=== PATIENT | male | born 1955 | race Caucasian/White ===

== ENCOUNTER → 2018-11-27 | Outpatient (CLI) | payer OTHER | LOC: FIMAGING 15:19 | PROVIDERS: ATTEND Physical Medicine & Rehabilitation | DX: M46.1 Sacroiliitis, not elsewhere classified (principal) ==

== ENCOUNTER 2018-12-20 14:08 | Observation (INO) | payer OTHER ==
[2018-12-20] MEDS ORDERED: ASPIRIN 81 MG CHEWABLE TAB PO ONE (14:19)
[2018-12-20] MEDS ORDERED: NS 500 ML IV ONE (14:19)
[2018-12-20 14:27] LABS: PLATELET COUNT 243 10^3/uL (150-400)
[2018-12-20 14:35] LABS: INR 0.95 (0.83-1.16); PROTIME(PATIENT) 12.3 SEC (12.0-15.0)
--- NOTE | 2018-12-20 16:07 | EDPHY ---
H & P Time Seen by Provider: 12/20/18 14:18 HPI/ROS: HPI Chest discomfort. 63-year-old male by private vehicle with his . This patient reports that at approximately 1:30 p.m. He was standing. He was with his . He had sudden onset what he describes as chest squeezing and pressure mid substernal. No radiation. He reports he has not had this pain or discomfort in the past. He does report having a sensation of his heart fluttering about a week ago. He describes this is brief and transient. He does not have any significant family history of coronary artery disease. Nonsmoker. No diabetes. No hypertension. His cholesterol is borderline. He denies any chest pain or shortness of breath at this time. ROS: Constitutional: No fever, no chills. No weakness. Eyes: No discharge. No changes in vision. ENT: No sore throat. No nasal congestion or rhinorrhea. Respiratory: No cough. No shortness of breath. Cardiac: As above, no palpitations. Gastrointestinal: No abdominal pain, no vomiting, no diarrhea. Genitourinary: No hematuria. No dysuria or increased frequency with urination. Musculoskeletal: No back pain. No neck pain. No myalgias or arthralgias. Skin: No rashes. Neurological: No headache. No focal weakness or altered sensation. Past medical history: He takes Lexapro for anxiety. Social history: Nonsmoker. Social alcohol. Here with his . Physical Exam: General Appearance: Alert, no distress. He is mildly anxious. This patient is responding to questions appropriately and in full sentences. This patient appears well-hydrated and well-nourished. Eyes: Pupils equal and round no pallor or injection. No lid edema, erythema or injection. Respiratory: There are no retractions, lungs are clear to auscultation with good air movement bilaterally. Cardiovascular: Regular rate and rhythm. No murmur. Gastrointestinal: Abdomen is soft and nontender, no masses, bowel sounds normal. No focal tenderness at McBurney's point. No Vasquez sign. Neurological: Motor sensory function is grossly intact. Cranial nerves are normal. Gait is normal. Skin: Warm and dry, no rashes. Musculoskeletal: Neck is supple and nontender. Extremities are symmetrical. All joints range without pain or impingement. Psychiatric: No agitation. No depression. Database: EKG: EKG time is 6:17 p.m.; EKG shows a narrow complex normal sinus rhythm with a ventricular rate of 70. The NE, QRS, QT intervals are within normal limits. There are no ST-T wave changes indicative of ischemic or injury pattern. No evidence of right heart strain. Interpreted by me. Imaging: Chest x-ray AP portable: The cardiac mediastinal silhouette is unremarkable. No evidence of pneumothorax or infiltrate. No acute cardiopulmonary disease process noted. Interpreted by me. Procedures: Emergency department course: Triage vital signs reviewed and are normal. The patient is afebrile. IV was placed. He was placed on a lunchroom monitor. EKG obtained and reviewed by myself. 4:00 p.m., the patient was re-evaluated, resting comfortably at this time. He remains asymptomatic. No shortness of breath. No chest pain or discomfort. Results of his emergency department workup were discussed with him and his . I discussed risk stratification. I discussed admission for observation and further testing overnight. At this time his and him do not want him to be admitted. He has a heart score of 3 which puts him in the upper and of the low risk category. He and his will discuss admission. I feel I have provided them with the proper information to make this decision appropriately. In my professional opinion they demonstrate capacitance to make decisions. 4:20 p.m., the patient was re-evaluated. He and his state that they would feel more comfortable with him being evaluated in the hospital overnight. I discussed the case with on-call hospitalist Dr. Tj Banuelos. She accepts this patient for admission to telemetry under her care. The patient's remaining emergency department course under my care has been uneventful. She was admitted in stable condition to the hospitalist service. Differential Diagnosis: The differential diagnosis on this patient includes but is not limited to anxiety reaction, pleurisy, esophageal spasm. Acute coronary syndrome, pulmonary embolism, aortic dissection, pneumonia, pneumothorax unlikely. This represents a partial list of diagnoses considered. These considerations are based on history, physical exam, past history, reassessment and diagnostic testing. Smoking Status: Never smoked Constitutional: Initial Vital Signs Temperature (C) 36.5 C 12/20/18 14:10 Heart Rate 86 12/20/18 14:10 Respiratory Rate 17 12/20/18 14:10 Blood Pressure 120/85 H 05/11/19 14:10 O2 Sat (%) 94 12/20/18 14:10 O2 Delivery Mode Room Air Allergies/Adverse Reactions: Penicillins Allergy (Mild, Verified 12/20/18 14:09) Home Medications: Medication Instructions Recorded Lexapro 12/20/18 Medical Decision Making - Diagnostics Imaging Results: Imaging Impressions Chest X-Ray 12/20/18 14:19 Impression: No acute localizing features. - Data Points Laboratory Results: Laboratory Results 12/20/18 14:20 12/20/18 14:20 12/20/18 12/20/18 12/20/18 14:22 14:20 14:20 WBC RBC Hgb Hct MCV MCH MCHC RDW Plt Count MPV Neut % (Auto) Lymph % (Auto) [place] % (Auto) Eos % (Auto) Baso % (Auto) Nucleat RBC Rel Count Absolute Neuts (auto) Absolute Lymphs (auto) Absolute Monos (auto) Absolute Eos (auto) Absolute Basos (auto) Absolute Nucleated RBC Immature Gran % Immature Gran # PT 12.3 SEC SEC (12.0-15.0) INR 0.95 (0.83-1.16) APTT 27.1 SEC SEC (23.0-38.0) Sodium 140 mEq/L mEq/L (135-145) Potassium 3.9 mEq/L mEq/L (3.5-5.2) Chloride 102 mEq/L mEq/L (97-110) Carbon Dioxide 25 mEq/l mEq/l (22-31) Anion Gap 13 mEq/L mEq/L (6-14) BUN 23 mg/dL mg/dL (7-23) Creatinine 1.0 mg/dL mg/dL (0.7-1.3) Estimated GFR > 60 Glucose 94 mg/dL mg/dL (70-100) Calcium 9.5 mg/dL mg/dL (8.5-10.4) POC Troponin I 0.00 ng/mL ng/mL (0.00-0.08) 12/20/18 14:20 WBC 5.74 10^3/uL 10^3/uL (3.80-9.50) RBC 5.21 10^6/uL 10^6/uL (4.40-6.38) Hgb 16.5 g/dL g/dL (13.7-17.5) Hct 48.3 % % (40.0-51.0) MCV 92.7 fL fL (81.5-99.8) MCH 31.7 pg pg (27.9-34.1) MCHC 34.2 g/dL g/dL (32.4-36.7) RDW 12.6 % % (11.5-15.2) Plt Count 243 10^3/uL 10^3/uL (150-400) MPV 8.9 fL fL (8.7-11.7) Neut % (Auto) 57.1 % % (39.3-74.2) Lymph % (Auto) 27.2 % % (15.0-45.0) [place] % (Auto) 10.1 % % (4.5-13.0) Eos % (Auto) 4.7 % % (0.6-7.6) Baso % (Auto) 0.7 % % (0.3-1.7) Nucleat RBC Rel Count 0.0 % % (0.0-0.2) Absolute Neuts (auto) 3.28 10^3/uL 10^3/uL (1.70-6.50) Absolute Lymphs (auto) 1.56 10^3/uL 10^3/uL (1.00-3.00) Absolute Monos (auto) 0.58 10^3/uL 10^3/uL (0.30-0.80) Absolute Eos (auto) 0.27 10^3/uL 10^3/uL (0.03-0.40) Absolute Basos (auto) 0.04 10^3/uL 10^3/uL (0.02-0.10) Absolute Nucleated RBC 0.00 10^3/uL 10^3/uL (0-0.01) Immature Gran % 0.2 % % (0.0-1.1) Immature Gran # 0.01 10^3/uL 10^3/uL (0.00-0.10) PT INR APTT Sodium Potassium Chloride Carbon Dioxide Anion Gap BUN Creatinine Estimated GFR Glucose Calcium POC Troponin I Medications Given: Discontinued Medications Aspirin (Aspirin) 324 mg PO EDNOW ONE Stop: 12/20/18 14:20 Last Admin: 12/20/18 14:25 Dose: 324 mg Sodium Chloride (Ns) 500 mls @ 1,000 mls/hr IV EDNOW ONE PRN Reason: Protocol Stop: 12/20/18 14:48 Last Admin: 12/20/18 14:26 Dose: 500 mls Point of Care Test Results: Chemistry 12/20/18 14:22 POC Troponin I 0.00 ng/mL ng/mL (0.00-0.08) Departure - Departure Disposition: [facility] Inpatient Acute Clinical Impression: Chest pain Referrals: Jamshid Maynard MD [Primary Care Provider] - As per Instructions
[2018-12-20] MEDS ORDERED: ONDANSETRON DISINTEGRATING 4 MG TAB PO PRN (16:55)
[2018-12-20] MEDS ORDERED: NITROGLYCERIN 0.4 MG BTL SL PRN (16:55)
[2018-12-20] MEDS ORDERED: ACETAMINOPHEN 325 MG TAB PO PRN (16:55)
[2018-12-20] MEDS ORDERED: ONDANSETRON 4 MG/2 ML VIAL IVP PRN (16:55)
--- NOTE | 2018-12-20 17:00 | PDGENHP ---
History and Physical - Chief Complaint chest pain - History of Present Illness 63 yo M with no significant PMH other than lumbosacral radiculopathy presenting with an episode of chest tightness that occurred earlier today while he was at work. He notes he was not doing anything particular when it began, was standing up, and suddenly developed tightness and squeezing across his chest. He notes it was not painful, but he felt very constricted. This lasted only seconds, he guesses about 15, and then resolved. He did have some lightheadedness after that , not severe, and no syncope or near syncope. He currently notes that he feels completely back to normal. He has never had similar sxs in the past. He states that he has been having more fatigue recently for no clear reason and this has been for the last 3 weeks or so. He does not think he has been sleeping as well as usual. He also had an episode of palpitations last week, and states he has had an episode or two of palpitations yearly for a long time, but has not had it worked up. He did have a heart scan by his PCP 3 months ago and thinks his score was 50, he knows it was a low risk score but slightly higher than it had been 4 years ago. History Information - Allergies/Home Medication List Allergies/Adverse Reactions: Penicillins Allergy (Mild, Verified 12/20/18 16:33) Unknown Home Medications: Acetaminophen [Tylenol ES 500 mg (*)] 1,000 mg PO DAILY PRN 12/20/18 [Last Taken 12/19/18 21:00] Cholecalciferol Vit D3 [Vitamin D3 2000 units tab (OTC)] 5,000 units PO BID 06/30 [Last Taken 12/20/18 08:00] Escitalopram Oxalate [Lexapro] 10 mg PO DAILY 12/20/18 [Last Taken 12/20/18 08: 00] Herbals/Supplements -Info Only 1 ea PO DAILY 12/20/18 [Last Taken Unknown] [place]-3 Fatty Acids [Fish Oil 1000 mg (*)] 1,000 mg PO BID 12/20/18 [Last Taken 12/20/18 08:00] I have personally reviewed and updated: family history, medical history, social history, surgical history - Past Medical History hyperlipidemia (LDL of 139 2 months ago) Additional medical history: lumbosacral radiculopathy--gets SUSY regularly, had an autoimmune w/u because of this recently including thyroid panel which was normal - Family History Positive for: diabetes type II (father), myocardial infarction (father with [place] in his late 70s) - Social History Smoking Status: Never smoked Alcohol Use: Other (drinks 2 glasses wine/day) Drug Use: None Additional social history: Review of Systems Review of Systems: ROS: 10pt was reviewed & negative except for what was stated in HPI & below Physical Exam Physical Exam: Temp Pulse Resp BP Pulse Ox 36.5 C 64 18 119/90 H 94 12/20/18 14:10 12/20/18 16:30 12/20/18 16:30 12/20/18 16:30 12/20/18 16:30 Constitutional: no apparent distress, appears nourished Eyes: PERRL, anicteric sclera Ears, Nose, Mouth, Throat: moist mucous membranes, hearing normal Cardiovascular: regular rate and rhythym, no murmur, rub, or gallop Respiratory: no respiratory distress, no rales or rhonchi Gastrointestinal: normoactive bowel sounds, soft, non-tender abdomen Genitourinary: no bladder tenderness Skin: warm, normal color Musculoskeletal: full muscle strength Neurologic: AAOx3 Psychiatric: interacting appropriately, not anxious, not encephalopathic Lab Data & Imaging Review 12/20/18 14:20 12/20/18 14:20 WBC 5.74 10^3/uL (3.80-9.50) 12/20/18 14:20 RBC 5.21 10^6/uL (4.40-6.38) 12/20/18 14:20 Hgb 16.5 g/dL (13.7-17.5) 12/20/18 14:20 Hct 48.3 % (40.0-51.0) 12/20/18 14:20 MCV 92.7 fL (81.5-99.8) 12/20/18 14:20 MCH 31.7 pg (27.9-34.1) 12/20/18 14:20 MCHC 34.2 g/dL (32.4-36.7) 12/20/18 14:20 RDW 12.6 % (11.5-15.2) 12/20/18 14:20 Plt Count 243 10^3/uL (150-400) 12/20/18 14:20 MPV 8.9 fL (8.7-11.7) 12/20/18 14:20 Neut % (Auto) 57.1 % (39.3-74.2) 12/20/18 14:20 Lymph % (Auto) 27.2 % (15.0-45.0) 12/20/18 14:20 [place] % (Auto) 10.1 % (4.5-13.0) 12/20/18 14:20 Eos % (Auto) 4.7 % (0.6-7.6) 12/20/18 14:20 Baso % (Auto) 0.7 % (0.3-1.7) 12/20/18 14:20 Nucleat RBC Rel Count 0.0 % (0.0-0.2) 12/20/18 14:20 Absolute Neuts (auto) 3.28 10^3/uL (1.70-6.50) 12/20/18 14:20 Absolute Lymphs (auto) 1.56 10^3/uL (1.00-3.00) 12/20/18 14:20 Absolute Monos (auto) 0.58 10^3/uL (0.30-0.80) 12/20/18 14:20 Absolute Eos (auto) 0.27 10^3/uL (0.03-0.40) 12/20/18 14:20 Absolute Basos (auto) 0.04 10^3/uL (0.02-0.10) 12/20/18 14:20 Absolute Nucleated RBC 0.00 10^3/uL (0-0.01) 12/20/18 14:20 Immature Gran % 0.2 % (0.0-1.1) 12/20/18 14: Immature Gran # 0.01 10^3/uL (0.00-0.10) 12/20/18 14:20 PT 12.3 SEC (12.0-15.0) 12/20/18 14:20 INR 0.95 (0.83-1.16) 12/20/18 14:20 APTT 27.1 SEC (23.0-38.0) 12/20/18 14:20 Sodium 140 mEq/L (135-145) 12/20/18 14:20 Potassium 3.9 mEq/L (3.5-5.2) 12/20/18 14:20 Chloride 102 mEq/L (97-110) 12/20/18 14:20 Carbon Dioxide 25 mEq/l (22-31) 12/20/18 14:20 Anion Gap 13 mEq/L (6-14) 12/20/18 14:20 BUN 23 mg/dL (7-23) 12/20/18 14:20 Creatinine 1.0 mg/dL (0.7-1.3) 12/20/18 14:20 Estimated GFR > 60 12/20/18 14:20 Glucose 94 mg/dL (70-100) 12/20/18 14:20 Calcium 9.5 mg/dL (8.5-10.4) 12/20/18 14:20 POC Troponin I 0.00 ng/mL (0.00-0.08) 12/20/18 14:22 Visualized and Interpreted Chest x-ray results: Yes Chest X-Ray results: normal Visualized and Interpreted EKG results: Yes EKG Interpretation: Positive for: normal sinsus rhythm Assessment & Plan Assessment: Chest pain (Acute) 63 yo M with no significant PMH presenting with very brief episode of chest tightness # chest pain/tightness: atypical chest pain with heart score of 3 but patient and relatively concerned and declined option to have one more troponin and f/u as outpatient for stress test. Will observe overnight on tele, serial ecg/ serial trops, so long as ECG and trops remain negative will get ETT in am for further evaluation. Currently cp free and initial w/u reassuring # fatigue: this has been present x several weeks, had recent autoimmune w/u including full thyroid panel which was negative, does have hx of heavy snoring and ? sleep apnea, recommend op sleep study for further evaluation # HLD: recent lipid panel showing LDL of 139, PCP monitoring for now # lumbosacral radiculopathy: patient scheduled for SUSY next week # observation status Patient new to my care. Old records reviewed and summarized as above. Care plan reviewed with ER doctor as above, further hx obtained from patients present at bedside.
--- NOTE | 2018-12-20 18:29 | CPEKG ---
Test Reason : OPEN Blood Pressure : / mmHG Vent. Rate : 070 BPM Atrial Rate : 070 BPM P-R Int : 171 ms QRS Dur : 100 ms QT Int : 389 ms P-R-T Axes : 069 075 047 degrees QTc Int : 420 ms Sinus rhythm Confirmed by Doyle Gloria [id number]) on 12/20/2018 6:28:42 PM Referred By: PHYSICIAN ED Confirmed By:Doyle Gloria
[2018-12-20] MEDS: CHOLECALCIFEROL VIT D3 2,000 UNITS TAB/CAP PO SCH (19:59)
[2018-12-20] MEDS: OMEGA-3 FATTY ACIDS 1,000 MG CAP PO SCH (19:59)
[2018-12-21 07:54] VITALS: BP 128/77
[2018-12-21] MEDS ORDERED: ESCITALOPRAM OXALATE 10 MG TAB PO SCH (09:00)
[2018-12-21] MEDS ORDERED: ASPIRIN 325 MG TAB PO SCH (09:00)
[2018-12-21] MEDS: OMEGA-3 FATTY ACIDS 1,000 MG CAP PO SCH (09:05)
[2018-12-21] MEDS: CHOLECALCIFEROL VIT D3 2,000 UNITS TAB/CAP PO SCH (09:06)
--- NOTE | 2018-12-21 11:00 | PDCARST ---
CAR Stress Test Results Type of Stress Test: TM stress test Indication: cp Description of Procedure: After informed consent was obtained, pt was exercised according to [facility] Protocol. Monitoring was performed with standard stress dry end tester electrode placement. Vital signs were monitored according to protocol throughout the procedure. STRESS EKG AND HEMODYNAMIC DATA. Exercise time: 10 min. This is equivalent to: 10.8 METS. Resting heart rate: 67 bpm. Resting blood pressure: 116/80 mmHg. Resting O2 saturation: 95 %. Peak heart rate: 149 bpm. This is 96 % of age predicted maximum heart rate response. Peak blood pressure: 168/82 mmHg. Exercise O2: 96%. Arrhythmias : 1 PVC at baseline, 1 PVC in stage 1, and 1 PVC in recovery. Reason for termination: The test was stopped due to maximal effort. Symptoms: The patient experienced no typical symptoms of angina during stress or recovery. STRESS TEST ANALYSIS. Baseline ECG: SR. Stress ECG: sinus tach. No exercise induced ischemic ECG changes. Rhythm: Rare PVC noted during exercise and recovery. Blood pressure: normal blood pressure response to exercise. Exercise tolerance : The patient has normal exercise tolerance adjusted for age and gender. Symptoms: No exercise induced symptoms. Impression: Stress ECG is negative for ischemia. The Harrison Treadmill Score is + 10 consistent with low cardiovascular risk (<1% annual mortality). Conclusion: Low risk TM stress test.
--- NOTE | 2018-12-21 13:55 | PDDCSUM ---
Discharge Summary Discharge Summary: Discharge diagnosis Chest pain Lumbar radiculopathy The patient presented to the emergency room with a transient sensation of squeezing in his chest. EKG was obtained which showed no acute ST or T-wave changes. Troponins were obtained which were negative x3. The patient's heart score was calculated at 3. He was admitted to the progressive care unit. An exercise treadmill test was ordered for the morning. The treadmill test which showed no ST elevation or deviation on maximal exertion and the patient had no chest pain with exertion. He was discharged home to follow up with his primary care physician for further evaluation and management of his underlying medical conditions. Disposition Home independent I spent less than 30 min on the discharge of this patient
== END 2018-12-21 12:26 | disposition home or self-care (01) ==
LOC: F2W 18:21
PROVIDERS: ADMIT Internal Medicine; ATTEND Internal Medicine
DX: R07.89 Other chest pain (principal); F41.9 Anxiety disorder, unspecified; M54.17 Radiculopathy, lumbosacral region; E86.9 Volume depletion, unspecified
CPT/HCPCS: 71045; 93005; 93017; 96360; 99285; G0378; 84484-ER